=== PATIENT | female | born 2000 | race Caucasian/White ===

== ENCOUNTER → 2024-10-16 | Outpatient (CLI) | payer OTHER, SELFPAY ==
[2024-10-16 12:38] LABS: T4 Free Direct 1.02 ng/dL (0.76-1.46)
[2024-10-17 04:07] LABS: Thyroid Peroxidase AB < 9 IU/mL (0-34)
== END | disposition home or self-care (01) ==
PROVIDERS: Referring Provider Dermatology Pediatric Dermatology; Visit Provider Dermatology Pediatric Dermatology
DX: D22.5 Melanocytic nevi of trunk (principal); L71.0 Perioral dermatitis; H05.249 Constant exophthalmos, unspecified eye
CPT/HCPCS: 36415; 84439; 84443; 86376